=== PATIENT | female | born 1975 | race Caucasian/White ===

== ENCOUNTER 2018-03-29 09:45 | Emergency (ER) | payer MEDICAID ==
[2018-03-29 10:12] VITALS: BP 137/74
--- NOTE | 2018-03-29 10:42 | ED Physician Documentation ---
PD HPI LOWER EXT INJURY - Stated complaint Stated Complaint: R LEG INJ - Chief complaint Chief Complaint: Ext Problem - History obtained from History obtained from: Patient - History of Present Illness PD HPI LOW EXT INJURY LOCATION: Right, Ankle Type of injury: Twist Where injury occurred: Work Timing - onset: How many minutes ago (Just prior to arrival.) - Additional information Additional information: The patient is a 42-year-old female who was walking when she twisted her right a nkle. She heard a "pop." She experiences pain with weightbearing since that time. The incident occurred just prior to arrival. She denies any other injuries. Review of Systems Respiratory: denies: Dyspnea Skin: denies: Abrasion (s) Musculoskeletal: reports: Joint pain (Right ankle). denies: Neck pain, Back pain Neurologic: denies: Focal weakness, Numbness PD PAST MEDICAL HISTORY - Past Medical History Endocrine/Autoimmune: None - Present Medications Home Medications: Ambulatory Orders Medication Instructions Recorded Confirmed Diazepam [Valium] 10 mg DAILY 03/29/18 03/29/18 Lisdexamfetamine Dimesylate 30 mg PO 03/29/18 [Vyvanse] Prazosin HCl 0 mg 03/29/18 - Allergies Allergies/Adverse Reactions: Allergies Allergy/AdvReac Type Severity Reaction Status Date / Time quetiapine [From Seroquel] Allergy Unknown Verified 03/29/18 10:12 antipsychotics Allergy Unknown Uncoded 03/29/18 10:12 PD ED PE NORMAL - Vitals Vital signs reviewed: Yes (Borderline hypertension.) - General General: Alert and oriented X 3, Well developed/nourished - HEENT HEENT: Atraumatic - Respiratory Respiratory: No respiratory distress - Derm Derm: No rash - Extremities Extremities: No edema, No calf tenderness / cord, Other (There is mild tenderness to palpation over the medial aspect of the right ankle, anterior to the medial malleolus. There is no tenderness to palpation over the posterior aspect of the medial malleolus, the lateral malleolus, fifth metatarsal base, or proximal fibula. Distal neurovascular is intact.) - Neuro Neuro: Alert and oriented X 3, No motor deficit, No sensory deficit Results - Vitals Vitals: Vital Signs - 24 hr 03/29/18 09:57 Temperature 36.8 C Heart Rate 86 Respiratory 18 Rate Blood Pressure 137/74 H O2 Saturation 100 Oxygen O2 Source Room air - Rads (name of study) right ankle Radiology: Prelim report reviewed, EMP read contemporaneously, See rad report (No fracture or dislocation. Mild soft tissue swelling about the ankle. Well rounded calcific density superior to the talonavicular junction is felt to be a nonacute finding.) PD MEDICAL DECISION MAKING - ED course Complexity details: reviewed results, considered differential, d/w patient ED course: The patient's presentation is most consistent with right ankle sprain. There is no evidence of fracture or dislocation on x-ray examination. Treatment in the emergency department included application of an ankle air splint. I discussed with her the expected course of injury, symptomatic treatment and outpatient follow-up, as well as potentially worrisome signs or symptoms that should prompt. - Sepsis Event Vital Signs: Vital Signs - 24 hr 03/29/18 09:57 Temperature 36.8 C Heart Rate 86 Respiratory 18 Rate Blood Pressure 137/74 H O2 Saturation 100 Oxygen O2 Source Room air Departure - Departure Disposition: 01 Home, Self Care Clinical Impression: Right ankle sprain Condition: Stable Instructions: ED Sprain Ankle W X Ray Comments: Keep your right leg elevated as much the time as possible. Apply ice pack to your right ankle intermittently for the next 3 or 4 days. You can use ibuprofen, up to 800 mg 3 times daily if needed for pain. Let pain be your guide to activity level. Follow-up with your primary physician within 2 weeks. Call to schedule appointment. Return to the emergency [facility] if you develop increasing pain or swelling, or otherwise worsening symptoms. Discharge Date/Time: 03/29/18 12:34
--- NOTE | 2018-03-29 11:51 | XRAY Report ---
Reason: right ankle injury Procedure Date: 03/29/2018 Accession Number: [id number] / [id number] Procedure: XR - Ankle 3 View RT CPT Code: FULL RESULT: EXAM: RIGHT ANKLE RADIOGRAPHY EXAM DATE: 03/29/2018 11:24 AM. CLINICAL HISTORY: Right ankle injury. COMPARISON: None. TECHNIQUE: 3 views. FINDINGS: Bones: Normal. No fractures or bone lesions. Joints: Normal. No effusion. No subluxations. The ankle mortise is normally aligned. Soft Tissues: Mild soft tissue swelling about the ankle. Well-rounded calcific density superior to the talonavicular junction is felt to be a nonacute finding. IMPRESSION: No fracture or dislocation. RADIA
== END 2018-03-29 12:34 | disposition home or self-care (01) ==
LOC: ED 09:45
DX: S93.401A Sprain of unspecified ligament of right ankle, initial encounter (principal); X50.1XXA Overexertion from prolonged static or awkward postures, initial encounter; Y93.01 Activity, walking, marching and hiking; Y99.0 Civilian activity done for income or pay
CPT/HCPCS: 99283

== ENCOUNTER 2018-04-06 12:39 | Emergency (ER) | payer MEDICAID ==
[2018-04-06 12:48] VITALS: BP 124/103
--- NOTE | 2018-04-06 13:24 | XRAY Report ---
Reason: painful ambulation. rolled it a week ago. Procedure Date: 04/06/2018 Accession Number: [id number] / [id number] Procedure: XR - Foot 3 View RT CPT Code: FULL RESULT: EXAM: RIGHT FOOT RADIOGRAPHY EXAM DATE: 04/06/2018 01:06 PM. CLINICAL HISTORY: Painful ambulation. Rolled it a week ago. COMPARISON: None. TECHNIQUE: 3 views. FINDINGS: Bones: Normal. Bipartite medial sesamoid. No fractures or bone lesions. Joints: Normal. No subluxations. Soft Tissues: Unremarkable. IMPRESSION: Normal foot radiography. RADIA
--- NOTE | 2018-04-06 16:38 | ED Physician Documentation ---
PD HPI LOWER EXT INJURY - Stated complaint Stated Complaint: R ANKLE PX - Chief complaint Chief Complaint: Ext Problem - History obtained from History obtained from: Patient - History of Present Illness PD HPI LOW EXT INJURY LOCATION: Right, Foot Type of injury: Twist Where injury occurred: Home Timing - onset: How many weeks ago (1) Timing - duration: Weeks (1) Timing - details: Gradual onset Pain level max: 8 Pain level now: 6 Improved by: Nothing Worsened by: Moving Associated symptoms: Swelling. No: Weakness, Numbness, Tingling Contributing factors: No: Anticoagulated Similar symptoms before: Has not had sx before Recently seen: Not recently seen - Additional information Additional information: Pt states she twisted her right foot a week ago as she was entering her car. Stated had been using ice pack, cornelio wrap and taking OTC pain med without relief. However, she's also has been walking her dogs. Review of Systems Ten Systems: 10 systems reviewed and negative Constitutional: denies: Fatigue Musculoskeletal: reports: Extremity pain, Extremity swelling, Pain with weight bearing. denies: Neck pain, Back pain, Joint pain, Joint swelling Neurologic: denies: Generalized weakness, Focal weakness, Numbness PD PAST MEDICAL HISTORY - Past Medical History Past Medical History: Yes Cardiovascular: Valve disorder Endocrine/Autoimmune: None Psych: Post traumatic stress disorder - Past Surgical History Past Surgical History: Yes Ortho: Rotator cuff repair Cardiovascular: Other - Present Medications Home Medications: Ambulatory Orders Medication Instructions Recorded Confirmed Lisdexamfetamine Dimesylate 30 mg PO 03/29/18 [Vyvanse] RX: Diazepam [Valium] 10 mg DAILY 03/29/18 03/29/18 RX: Prazosin HCl 0 mg 03/29/18 Hydrocodone/Acetaminophen 1 - 2 each PO Q6H PRN #14 tablet 04/06/18 [Hydrocodon-Acetaminophen 5-325] - Allergies Allergies/Adverse Reactions: Allergies Allergy/AdvReac Type Severity Reaction Status Date / Time quetiapine [From Seroquel] Allergy Unknown Verified 04/06/18 12:48 antipsychotics Allergy Unknown Uncoded 04/06/18 12:48 - Social History Does the pt smoke?: No Smoking Status: Never smoker Does the pt drink ETOH?: No Does the pt have substance abuse?: Yes Substance Use and Type: Marijuana - Immunizations Immunizations are current?: Yes - POLST Patient has POLST: No PD ED PE NORMAL - Vitals Vital signs reviewed: Yes - General General: Alert and oriented X 3, No acute distress, Well developed/nourished - HEENT HEENT: Moist mucous membranes - Cardiac Cardiac: Strong equal pulses - Respiratory Respiratory: No respiratory distress - Derm Derm: Normal color, Warm and dry - Extremities Extremities: No deformity, No edema, No calf tenderness / cord, Other (Ambulatory. Right ankle no bony tenderness. Right foot no bony tenderness; below and anterior to the medial malleolar bone with mild edema and mild ten derness to palpation. FROM. Pulses +2. Cap refill less than <2. ) - Neuro Neuro: Alert and oriented X 3, No motor deficit, No sensory deficit - Psych Psych: Normal mood, Normal affect Results - Vitals Vitals: Vital Signs - 24 hr 04/06/18 12:46 Temperature 35.7 C L Heart Rate 89 Respiratory 15 Rate Blood Pressure 124/103 H O2 Saturation 99 Oxygen O2 Source Room air PD MEDICAL DECISION MAKING - ED course Complexity details: re-evaluated patient (1640 Pt informed of xray results. Requesting for stronger pain med such as hydrocodone since she's been taking tylenol and NSAIDS without improvement. Discussed outpt treatment including importance of getting a PCP for reevaluation and referral to business segment manager or orthopedist.), considered differential (sprain, strain, ligamentous injury, fracture), d/w patient Departure - Departure Disposition: 01 Home, Self Care Clinical Impression: Right foot sprain Qualifiers: Encounter type: initial encounter Qualified Code(s): S93.601A - Unspecified sprain of right foot, initial encounter Condition: Good Instructions: ED Sprain Foot Prescriptions: Hydrocodone/Acetaminophen [Hydrocodon-Acetaminophen 5-325] 1 - 2 each PO Q6H PRN #14 tablet PRN Reason: pain Comments: FOLLOW UP W/ YOUR PCP AND GET A PODIATRY OR ORTHO REFERRAL NEEDED. USE YOUR CORNELIO WRAP. MAINTAIN SAFETY WHILE TAKING HYDROCODONE. OTC STOOL SOFTENER, EAT HIGH FIBER FOOD, DRINK LOTS OF WATER TO PREVENT CONSTIPATION FROM NARCOTIC PAIN MED. MAINTAIN SAFETY NO ALCOHOL, DRIVING OR WORKING WITH MACHINERY. IF WORSE RETURN TO THE E.R. Discharge Date/Time: 04/06/18 16:44
== END 2018-04-06 16:44 | disposition home or self-care (01) ==
LOC: ED 12:39
DX: S93.601A Unspecified sprain of right foot, initial encounter (principal); X50.1XXA Overexertion from prolonged static or awkward postures, initial encounter; Y92.009 Unspecified place in unspecified non-institutional (private) residence as the place of occurrence of the external cause
CPT/HCPCS: 99282; 99283

== ENCOUNTER 2018-05-21 10:31 | Outpatient (CLI) | payer MEDICAID ==
[2018-05-21 18:34] LABS: BASOPHILS # (AUTO) 0.1 10^3/uL (0.0-0.1); BASOPHILS % (AUTO) 1.1 %; EOSINOPHILS # (AUTO) 0.1 10^3/uL (0.0-0.7); EOSINOPHILS % (AUTO) 2.2 %; HGB - HEMOGLOBIN 14.2 g/dL (12.0-16.0); LYMPHOCYTES # (AUTO) 1.3 10^3/uL (1.5-3.5); LYMPHOCYTES % (AUTO) 25.4 %; MEAN CORPUSCULAR HEMOGLOBIN 30.9 pg (27.0-31.0); MEAN CORPUSCULAR VOLUME 93.6 fL (81.0-99.0); MEAN PLATELET VOLUME 8.8 fL (7.9-10.8); MONOCYTES # (AUTO) 0.5 10^3/uL (0.0-1.0); MONOCYTES % (AUTO) 9.7 %; NEUTROPHILS # (AUTO) 3.3 10^3/uL (1.5-6.6); NEUTROPHILS % (AUTO) 61.6 %; PLT - PLATELET COUNT 285 10^3/uL (130-450); RED BLOOD COUNT 4.59 10^6/uL (4.20-5.40); RED CELL DISTRIBUTION WIDTH 13.3 % (12.0-15.0); WHITE BLOOD COUNT 5.3 x10^3/uL (4.8-10.8)
[2018-05-21 18:44] LABS: ALBUMIN 4.2 g/dL (3.2-5.5); ALBUMIN/GLOBULIN RATIO 1.2 (1.0-2.2); ALKALINE PHOSPHATASE 76 IU/L (42-121); ALT ALANINE AMINOTRANSFERASE 18 IU/L (10-60); AST ASPARTATE AMINOTRANSFERASE 21 IU/L (10-42); BILIRUBIN,TOTAL 0.7 mg/dL (0.2-1.0); BUN - BLOOD UREA NITROGEN 5 mg/dL (6-20); CARBON DIOXIDE - CO2 27 mmol/L (21-32); CHLORIDE 99 mmol/L (101-111); CHOL/HDL RATIO 4.1 (<4.4); CHOLESTEROL 255 mg/dL; CREATININE 0.8 mg/dL (0.4-1.0); GFR - MDRD 78 (>89); GLUCOSE 114 mg/dL (70-100); HDL CHOLESTEROL 62 mg/dL; LDL CHOLESTEROL,CALCULATED 156 mg/dL; LDL/HDL RATIO 2.5 (<4.4); SODIUM 135 mmol/L (135-145); TOTAL PROTEIN 7.7 g/dL (6.7-8.2); VLDL CHOLESTEROL 37 mg/dL
== END 2018-05-21 10:32 | disposition home or self-care (01) ==
LOC: LAB.F 10:31
PROVIDERS: ATTEND Registered Nurse
DX: K30 Functional dyspepsia (principal)
CPT/HCPCS: 36415; 80050; 80061; 83721

== ENCOUNTER 2018-05-29 01:55 | Emergency (ER) | payer MEDICAID ==
--- NOTE | 2018-05-29 02:30 | ED Physician Documentation ---
History of Present Illness - Stated complaint Stated Complaint: VALIUM WITHDRAWAL - Chief complaint Chief Complaint: General - History obtained from History obtained from: Patient - History of Present Illness Timing: How many weeks ago (3) Improved by: no ameliorating factors Worsened by: no exacerbating factors - Additonal information Additional information: "I'm having withdrawal from valium" (per patient). C/O 3 weeks of intermittent nausea, vomiting, diarrhea, and insomnia. These symptoms have been worse the past few days. Patient had been on a benzodiazepine for years for OCD and for insomnia; she says she has been on valium for at least several months until moving, recently, to [place]. She was taking 10mg valium QHS for sleep. She recently met for the first time with her new local practitioner who wanted to taper patient off of the valium and thus provided a prescription for valium 2mg tablets #7 tablets to be taken one tablet QHS. Patient finished this 2 days ago and her symptoms have since worsened. Review of Systems Constitutional: denies: Chills, Sweats Cardiac: reports: Reviewed and negative Respiratory: reports: Reviewed and negative GI: reports: Nausea, Vomiting, Diarrhea. denies: Abdominal Pain Psychiatric: reports: Anxiety, Insomnia. denies: Depressed, Suicidal, Hallucinations, Delusions PD PAST MEDICAL HISTORY - Past Medical History Past Medical History: Yes Cardiovascular: Valve disorder Respiratory: None Neuro: None Endocrine/Autoimmune: None GI: None EXTRUSION PROCESS OPERATOR: None : None HEENT: None Psych: ADD/ADHD, Post traumatic stress disorder, Obsessive compulsive disorder Musculoskeletal: None Derm: None Other Past Medical History: INSOMNIA... - Past Surgical History Past Surgical History: Yes General: Other Ortho: Rotator cuff repair Cardiovascular: Other - Present Medications Home Medications: Ambulatory Orders Medication Instructions Recorded Confirmed Diazepam [Valium] 10 mg DAILY 03/29/18 03/29/18 Lisdexamfetamine Dimesylate 30 mg PO 03/29/18 [Vyvanse] Prazosin HCl 0 mg 03/29/18 Hydrocodone/Acetaminophen 1 - 2 each PO Q6H PRN #14 tablet 04/06/18 [Hydrocodon-Acetaminophen 5-325] Ondansetron Odt [Zofran] 4 mg TL Q6H PRN #14 tablet 05/29/18 diazePAM [Valium] 5 - 10 mg PO DAILY PRN #20 tablet 05/29/18 - Allergies Allergies/Adverse Reactions: Allergies Allergy/AdvReac Type Severity Reaction Status Date / Time quetiapine [From Seroquel] Allergy Unknown Verified 04/06/18 12:48 antipsychotics Allergy Unknown Uncoded 04/06/18 12:48 - Social History Does the pt smoke?: No Smoking Status: Never smoker Does the pt drink ETOH?: No Does the pt have substance abuse?: Yes - Immunizations Immunizations are current?: Yes - POLST Patient has POLST: No PD ED PE NORMAL - Vitals Vital signs reviewed: Yes - General General: Alert and oriented X 3, No acute distress, Well developed/nourished - HEENT HEENT: Moist mucous membranes - Cardiac Cardiac: RRR, No murmur - Respiratory Respiratory: No respiratory distress, Clear bilaterally - Abdomen Abdomen: Soft, Non tender - Neuro Neuro: Alert and oriented X 3 Eye Opening: Spontaneous Motor: Obeys Commands Verbal: Oriented GCS Score: 15 Results - Vitals Vitals: Vital Signs - 24 hr 05/29/18 05/29/18 05/29/18 02:02 03:40 03:56 Temperature 36.7 C Heart Rate 88 Respiratory 18 18 16 Rate Blood Pressure 124/66 O2 Saturation 98 05/29/18 05/29/18 04:09 04:45 Temperature Heart Rate 80 Respiratory 17 16 Rate Blood Pressure 115/62 O2 Saturation 99 Oxygen O2 Source Room air - Labs Labs: Laboratory Tests 05/29/18 05/29/18 05/29/18 03:20 03:20 04:00 WBC 5.5 RBC 4.62 Hgb 14.0 Hct 42.5 MCV 92.1 MCH 30.3 MCHC 32.9 RDW 13.5 Plt Count 309 MPV 8.0 Neut # (Auto) 3.7 Lymph # (Auto) 1.3 L [place] # (Auto) 0.4 Eos # (Auto) 0.0 Baso # (Auto) 0.1 Absolute Nucleated RBC 0.00 Nucleated RBC % 0.0 Sodium 138 Potassium 3.9 Chloride 108 Carbon Dioxide 21 Anion Gap 9.0 BUN 10 Creatinine 0.5 Estimated GFR (MDRD) 135 Glucose 124 H Calcium 8.1 L Total Bilirubin 0.3 AST 35 ALT 37 Alkaline Phosphatase 60 Total Protein 7.4 Albumin 3.6 Globulin 3.8 Albumin/Globulin Ratio 0.9 L Lipase 35 Ur Specific Amber 1.015 Urine HCG, Qual NEGATIVE PD MEDICAL DECISION MAKING - ED course Complexity details: reviewed old records, reviewed results, re-evaluated patient, considered differential, d/w patient ED course: STACEY form corroborates patient's story in that there are prescriptions for #30 tablets 10mg Valium monthly for the past few months, and then a 2mg Valium prescription for 7 tablets. Given that her last 10mg valium rx was filled 04/24, this would seem like enough time to adjust to the lack of valium; her symptoms and appearance are not strongly s/o benzodiazepine withdrawal (specifically, would expect tremulousness, obvious anxiety and/or irritability). I provided an rx for valium and she understands that the ED would not be able to provide regular prescriptions for this in the future. She did not exhibit any medication "seeking" behaviors during this ED visit; she did not bargain or argue over medications types, doses, or amounts prescribed. Departure - Departure Disposition: 01 Home, Self Care Clinical Impression: Vomiting and diarrhea Condition: Good Instructions: ED Vomiting Diarrhea Nonspecific Ad Follow-Up: Chelsi Fraire ARNP [Primary Care Provider] - Prescriptions: diazePAM [Valium] 5 - 10 mg PO DAILY PRN #20 tablet PRN Reason: Anxiety Ondansetron Odt [Zofran] 4 mg TL Q6H PRN #14 tablet PRN Reason: Nausea / Vomiting Comments: You can also take immodium as directed by the label as needed for diarrhea/abdominal cramping. This is an [id number] medication and thus no prescription is required. Discharge Date/Time: 05/29/18 04:45
[2018-05-29] MEDS ORDERED: ONDANSETRON 4 MG/2 ML VIAL IVP STA (02:51)
[2018-05-29] MEDS ORDERED: SODIUM CHLORIDE 0.9% 1,000 ML IV STA (02:51)
[2018-05-29 03:30] LABS: BASOPHILS # (AUTO) 0.1 10^3/uL (0.0-0.1); BASOPHILS % (AUTO) 1.4 %; EOSINOPHILS % (AUTO) 0.5 %; LYMPHOCYTES # (AUTO) 1.3 10^3/uL (1.5-3.5); LYMPHOCYTES % (AUTO) 23.9 %; MEAN CORPUSCULAR HEMOGLOBIN 30.3 pg (27.0-31.0); MEAN CORPUSCULAR HGB CONC 32.9 g/dL (32.0-36.0); MEAN CORPUSCULAR VOLUME 92.1 fL (81.0-99.0); MONOCYTES # (AUTO) 0.4 10^3/uL (0.0-1.0); MONOCYTES % (AUTO) 6.7 %; NEUTROPHILS # (AUTO) 3.7 10^3/uL (1.5-6.6); NEUTROPHILS % (AUTO) 67.5 %; PLT - PLATELET COUNT 309 10^3/uL (130-450); RED BLOOD COUNT 4.62 10^6/uL (4.20-5.40); RED CELL DISTRIBUTION WIDTH 13.5 % (12.0-15.0); WHITE BLOOD COUNT 5.5 x10^3/uL (4.8-10.8)
[2018-05-29 03:45] LABS: ALBUMIN 3.6 g/dL (3.2-5.5); ALBUMIN/GLOBULIN RATIO 0.9 (1.0-2.2); BILIRUBIN,TOTAL 0.3 mg/dL (0.2-1.0); CALCIUM 8.1 mg/dL (8.5-10.3); CREATININE 0.5 mg/dL (0.4-1.0); TOTAL PROTEIN 7.4 g/dL (6.7-8.2)
[2018-05-29 04:10] VITALS: BP 115/62
[2018-05-29 04:15] LABS: HCG UR QUAL NEGATIVE
[2018-05-29] MEDS ORDERED: diazePAM 5 MG TABLET PO STA (04:31)
== END 2018-05-29 04:45 | disposition home or self-care (01) ==
LOC: ED 01:55
DX: R11.10 Vomiting, unspecified (principal); R19.7 Diarrhea, unspecified
CPT/HCPCS: 36415; 80053; 81025; 83690; 85025; 96361; 96374; 99283; 99284; A9270

== ENCOUNTER 2018-08-12 15:40 | Emergency (ER) | payer MEDICAID ==
[2018-08-12 16:12] LABS: BILIRUBIN,URINE NEGATIVE (NEGATIVE); GLUCOSE, URINE (UA) NEGATIVE (NEGATIVE); KETONES,URINE (UA) NEGATIVE (NEGATIVE); LEUKOCYTE ESTERASE, URINE NEGATIVE (NEGATIVE); NITRITE,URINE NEGATIVE (NEGATIVE); OCCULT BLOOD,URINE TRACE-INTA (NEGATIVE); PROTEIN,URINE NEGATIVE (NEGATIVE); UROBILINOGEN,URINE 0.2 (NORMAL) E.U./dL (NORMAL)
[2018-08-12 16:15] LABS: CLARITY,URINE CLEAR (CLEAR); HCG UR QUAL NEGATIVE
--- NOTE | 2018-08-12 16:15 | ED Physician Documentation ---
PD HPI BACK INJURY - Stated complaint Stated Complaint: BACK PAIN - History obtained from History obtained from: Patient - History of Present Illness Location: Left, Lower Type of injury: Twist (slipped and fell to left side, with twisting o flow back and pain following later in the day, and has persisted with pain on ROM. No rash, weakness, sores. Pain with ROM.) Timing - onset: How many days ago (few) Timing - duration: Days Timing - details: Gradual onset (did not hurt at time of the fall but later in evening.). No: Abrupt onset Quality: Spasm, Aching, Dull Improved by: Rest Worsened by: Moving, Palpating Associated symptoms: No: Fever, Weakness, Numbness Similar symptoms before: No diagnosis (intermittent low back pain) Review of Systems Constitutional: denies: Fever, Chills, Myalgias GI: denies: Abdominal Pain, Vomiting, Diarrhea, Bloody / black stool : denies: Dysuria, Frequency, Incontinent Skin: denies: Rash Musculoskeletal: reports: Back pain. denies: Neck pain Neurologic: denies: Focal weakness, Numbness PD PAST MEDICAL HISTORY - Past Medical History Cardiovascular: Valve disorder Respiratory: None Neuro: None Endocrine/Autoimmune: None GI: None DIRECTOR EHS: None : None HEENT: None Psych: ADD/ADHD, Post traumatic stress disorder, Obsessive compulsive disorder Musculoskeletal: None Derm: None - Past Surgical History Past Surgical History: Yes General: Other Ortho: Rotator cuff repair Cardiovascular: Other - Present Medications Home Medications: Ambulatory Orders Medication Instructions Recorded Confirmed diazePAM [Valium] 5 - 10 mg PO DAILY PRN #20 tablet 05/29/18 Bupropion HCl [Bupropion Xl] 300 mg PO 08/12/18 Gabapentin [Neurontin] 300 mg PO TID 08/12/18 08/12/18 Methocarbamol [Robaxin] 500 mg PO Q6H PRN #30 tablet 08/12/18 Naproxen 375 mg PO BID #20 tablet 08/12/18 Tramadol HCl 50 mg PO Q6H PRN #15 tablet 08/12/18 - Allergies Allergies/Adverse Reactions: Allergies Allergy/AdvReac Type Severity Reaction Status Date / Time quetiapine [From Seroquel] Allergy Unknown Verified 08/12/18 15:49 antipsychotics Allergy Unknown Uncoded 08/12/18 15:49 - Social History Does the pt smoke?: No Smoking Status: Never smoker Does the pt drink ETOH?: No Does the pt have substance abuse?: Yes - Immunizations Immunizations are current?: Yes - POLST Patient has POLST: No PD ED PE NORMAL - Vitals Vital signs reviewed: Yes - General General: Alert and oriented X 3, No acute distress, Well developed/nourished - HEENT HEENT: Atraumatic - Neck Neck: Supple, no meningeal sign, No bony TTP, No adenopathy - Cardiac Cardiac: RRR, No murmur - Respiratory Respiratory: Clear bilaterally - Abdomen Abdomen: Soft, Non tender - Back Back: No spinal TTP (tender left lateral muscles in lumbar region. ) - Derm Derm: Normal color, Warm and dry - Extremities Extremities: No deformity, No tenderness to palpate - Neuro Neuro: Alert and oriented X 3, No motor deficit, No sensory deficit, Other (normal patellar reflexes. ) Results - Vitals Vitals: Oxygen O2 Source Room air - Labs Labs: Laboratory Tests 08/12/18 16:00 Urine Color YELLOW Urine Clarity CLEAR Urine pH 7.0 Ur Specific [place] 1.015 Urine Protein NEGATIVE Urine Glucose (UA) NEGATIVE Urine Ketones NEGATIVE Urine Occult Blood TRACE-INTA Urine Nitrite NEGATIVE Urine Bilirubin NEGATIVE Urine Urobilinogen 0.2 (NORMAL) Ur Leukocyte Esterase NEGATIVE Ur Microscopic Review NOT INDICATED Urine Culture Comments NOT INDICATED Urine HCG, Qual NEGATIVE PD MEDICAL DECISION MAKING - ED course Complexity details: considered differential, d/w patient, other (did anesth injection at left lumbar muscle area of most tenderness. Used Marcaine with Kenalog. ) Departure - Departure Disposition: 01 Home, Self Care Clinical Impression: Low back strain Qualifiers: Encounter type: initial encounter Qualified Code(s): S39.012A - Strain of m uscle, fascia and tendon of lower back, initial encounter Fall from slip, trip, or stumble Qualifiers: Encounter type: initial encounter Qualified Code(s): W01.0XXA - Fall on same level from slipping, tripping and stumbling without subsequent striking against object, initial encounter Condition: Stable Record reviewed to determine appropriate education?: Yes Instructions: ED Sprain Strain Lumbar Follow-Up: Chelsi Fraire ARNP [Primary Care Provider] - Prescriptions: Methocarbamol [Robaxin] 500 mg PO Q6H PRN #30 tablet PRN Reason: Spasms Naproxen 375 mg PO BID #20 tablet Tramadol HCl 50 mg PO Q6H PRN #15 tablet PRN Reason: Pain Comments: Heat and stretching for the low back. Naproxen twice daily for 7-10 days. Robaxin for spasms. Add Tylenol or Tramadol for pains. Recheck if not improved over the next several days to a week. Discharge Date/Time: 08/12/18 17:33
[2018-08-12] MEDS ORDERED: TRIAMCINOLONE 40 MG/ML VIAL IM STA (16:41)
[2018-08-12] MEDS ORDERED: NAPROXEN 250 MG TABLET PO STA (16:41)
[2018-08-12] MEDS ORDERED: ACETAMINOPHEN 325 MG TABLET PO STA (16:41)
[2018-08-12 17:35] VITALS: BP 129/77
== END 2018-08-12 17:33 | disposition home or self-care (01) ==
LOC: ED 15:40
DX: S39.012A Strain of muscle, fascia and tendon of lower back, initial encounter (principal); W01.0XXA Fall on same level from slipping, tripping and stumbling without subsequent striking against object, initial encounter
CPT/HCPCS: 81003; 81025; 99283; A9270; 81001; 87086

== ENCOUNTER 2018-10-03 22:36 | Emergency (ER) | payer MEDICAID ==
--- NOTE | 2018-10-03 22:48 | ED Physician Documentation ---
PD HPI LOWER EXT INJURY - Stated complaint Stated Complaint: L ANKLE PX - Chief complaint Chief Complaint: Ext Problem - History obtained from History obtained from: Patient - History of Present Illness PD HPI LOW EXT INJURY LOCATION: Left, Ankle Type of injury: Twist Where injury occurred: Home Timing - onset: Enter time (18:30), Today Timing - details: Abrupt onset Pain level now: 8 Worsened by: Moving, Palpating Associated symptoms: Swelling Recently seen: Emergency Dept (2 months ago for back pain) - Additional information Additional information: [place] after [place] cat, landed on her feet but sudden left ankle pain when she landed. This was approximately 6:30 PM tonight. Review of Systems Musculoskeletal: reports: Joint pain, Joint swelling, Pain with weight bearing Neurologic: denies: Focal weakness, Numbness PD PAST MEDICAL HISTORY - Past Medical History Past Medical History: Yes Cardiovascular: Valve disorder Respiratory: None Neuro: None Endocrine/Autoimmune: None GI: None RECEIVING ROOM CLERK: None : None HEENT: None Psych: ADD/ADHD, Post traumatic stress disorder, Obsessive compulsive disorder Musculoskeletal: None Derm: None - Past Surgical History Past Surgical History: Yes General: Other Ortho: Rotator cuff repair Cardiovascular: Other - Present Medications Home Medications: Ambulatory Orders Medication Instructions Recorded Confirmed Bupropion HCl [Bupropion Xl] 450 mg PO DAILY 08/12/18 Gabapentin [Neurontin] 600 mg PO TID 08/12/18 08/12/18 - Allergies Allergies/Adverse Reactions: Allergies Allergy/AdvReac Type Severity Reaction Status Date / Time quetiapine [From Seroquel] Allergy Unknown Verified 10/03/18 22:43 antipsychotics Allergy Unknown Uncoded 10/03/18 22:43 - Social History Does the pt smoke?: No Smoking Status: Never smoker Does the pt drink ETOH?: No Does the pt have substance abuse?: No Substance Use and Type: Marijuana - Immunizations Immunizations are current?: Yes - POLST Patient has POLST: No PD ED PE NORMAL - Vitals Vital signs reviewed: Yes - General General: Alert and oriented X 3, No acute distress, Well developed/nourished - Derm Derm: Normal color, Warm and dry - Neuro Neuro: No motor deficit, No sensory deficit PD ED PE EXPANDED - Extremities Extremities: Tenderness, Limited ROM, Swelling, Left ankle (swelling is lateral>medial, although pain/tenderness is medial>lateral) Results - Vitals Vitals: Vital Signs - 24 hr 10/03/18 10/03/18 22:40 23:42 Temperature 36.6 C Heart Rate 107 H 106 H Respiratory 18 16 Rate Blood Pressure 124/74 119/81 H O2 Saturation 98 99 Oxygen O2 Source Room air - Rads (name of study) left ankle xrays Radiology: Prelim report reviewed, See rad report PD MEDICAL DECISION MAKING - ED course Complexity details: reviewed results, re-evaluated patient, considered differential, d/w patient Departure - Departure Disposition: 01 Home, Self Care Clinical Impression: Ankle sprain Condition: Good Instructions: ED Sprain Ankle W X Ray Follow-Up: Chelsi Fraire ARNP [Primary Care Provider] - Within 1 week Discharge Date/Time: 10/03/18 23:45
--- NOTE | 2018-10-03 23:23 | XRAY Report ---
Reason: injury, pain, tenderness, swelling Procedure Date: 10/03/2018 Accession Number: [id number] / [id number] Procedure: XR - Ankle 3 View LT CPT Code: FULL RESULT: EXAM: LEFT ANKLE RADIOGRAPHY EXAM DATE: 10/03/2018 10:59 PM. CLINICAL HISTORY: Injury, pain, tenderness, swelling. COMPARISON: None TECHNIQUE: 3 views. FINDINGS: Bones: No acute fractures or suspicious bone lesions. Former internal fixation tracts in the distal tibia and fibula. Joints: No subluxations. Ankle mortise is preserved. Soft Tissues: Soft tissue swelling. IMPRESSION: No acute radiographic abnormalities. RADIA
[2018-10-03 23:43] VITALS: BP 119/81
== END 2018-10-03 23:45 | disposition home or self-care (01) ==
LOC: ED 22:36
DX: S93.402A Sprain of unspecified ligament of left ankle, initial encounter (principal); W22.8XXA Striking against or struck by other objects, initial encounter; Y93.39 Activity, other involving climbing, rappelling and jumping off; Y92.009 Unspecified place in unspecified non-institutional (private) residence as the place of occurrence of the external cause
CPT/HCPCS: 99283

== ENCOUNTER 2019-01-03 12:03 | Emergency (ER) | payer MEDICAID ==
[2019-01-03 12:13] VITALS: BP 128/78
== END 2019-01-03 14:00 | disposition left against medical advice (07) ==
LOC: ED 12:03
DX: Z53.21 Procedure and treatment not carried out due to patient leaving prior to being seen by health care provider (principal)